=== PATIENT | female | born 1935 | race Caucasian/White ===

== ENCOUNTER 2016-11-27 06:01 | Day surgery (SDC) | payer BC ==
--- NOTE | ~2016-11-27 | EGD ---
EGD REPORT [facility] [address] [place] [address] NAME: RANJAN COLEMAN : 37 STATUS : REG [facility] [place] PAT#: [id number] AGE: 81 ADM/REG DATE : 11/27/16 MR#: [id number] REPORT SERV DATE: 11/27/16 DICTATED BY: MICH BIRMINGHAM DATE: 11/27/16 REPORT STATUS : Draft TRANSCRIBED BY: [employer] DATE: 11/27/16 [facility] Center Patient Name: Ranjan Coleman Date of : 1935 Attending MD: MICH BIRMINGHAM MD Procedure Date No Time: 11/27/2016 Procedure: Upper GI endoscopy Indications: Epigastric abdominal pain, Heartburn, Suspected esophageal reflux, Unexplained chest pain Referring MD: MELISSA MCFARLANE MD Medicines: as per anesthesia Complications: No immediate complications. Procedure: Pre-Anesthesia Assessment: - ASA Grade Assessment: III - A patient with severe systemic disease. After obtaining informed consent, the endoscope was passed under direct vision. Throughout the procedure, the patient's blood pressure, pulse, and oxygen saturations were monitored continuously. The GIF [id number] was introduced through the mouth, and advanced to the third part of duodenum. The upper GI endoscopy was accomplished without difficulty. The patient tolerated the procedure. Findings: The examined esophagus was normal. Localized mild inflammation characterized by erythema was found in the gastric antrum. Biopsies were taken with a cold forceps for histology. The cardia and gastric fundus were normal on retroflexion. The examined duodenum was normal. Impression: - Normal esophagus. - Gastritis. Biopsied. - Normal examined duodenum. Recommendation: - Await pathology results. - Follow an antireflux regimen. - Continue present medications. Procedure Code(s): --- Professional --- 86652, Esophagogastroduodenoscopy, flexible, transoral; with biopsy, single or multiple Diagnosis Code(s): --- Professional --- K29.70, Gastritis, unspecified, without bleeding EGD REPORT [place] [address] [address] NAME: RANJAN COLEMAN : 37 STATUS : REG [facility]#: [id number] AGE: 81 ADM/REG DATE : 11/27/16 MR#: [id number] REPORT SERV DATE: 11/27/16 DICTATED BY: MICH BIRMINGHAM. DATE: 11/27/16 REPORT STATUS : Draft TRANSCRIBED BY: [employer] DATE: 11/27/16 R10.13, Epigastric pain R12, Heartburn R07.9, Chest pain, unspecified CPT copyright 2013 [employer]. All rights reserved. The codes documented in this report are preliminary and upon career information specialist review may be revised to meet current compliance requirements. MICH BIRMINGHAM MD 11/27/2016 7:54 AM This report has been signed electronically. Number of Addenda: 0 Note Initiated On: 11/27/2016 7:37 AM Scope Withdrawal Time 0 hours 0 minutes [address] [place] [address] [place] [address]
[~2016-11-27 06:01] MED LIST: ACET500CAP PO; ASAB PO; ATV.5 PO; CARASPUDL PO; COREG3 PO; FISH-EPA1000 MG PO; GLUCCHONDR PO; MULTIPLE VIT PO; RESTASIS OPH; SYSTANE ULTR OP; TUMSROLL PO; VITC500 PO; VIVELLE-DOT0.0375 MG TOP; ZADITOR EYE DROPS OP; [UNRECOGNIZED DRUG - OTHER] PO
== END 2016-11-27 23:59 | disposition home health service (06) ==
LOC: DMU 06:01
PROVIDERS: Internal Medicine Gastroenterology
PROC: 0DB68ZX Excision of Stomach, Via Natural or Artificial Opening Endoscopic, Diagnostic (ICD-10-PCS; principal; 2016-11-27 07:00)
DX: R10.13 Epigastric pain (principal); J44.9 Chronic obstructive pulmonary disease, unspecified; I10 Essential (primary) hypertension; Z86.73 Personal history of transient ischemic attack (TIA), and cerebral infarction without residual deficits; Z88.2 Allergy status to sulfonamides; Z88.8 Allergy status to other drugs, medicaments and biological substances; Z87.891 Personal history of nicotine dependence; G43.909 Migraine, unspecified, not intractable, without status migrainosus; M19.90 Unspecified osteoarthritis, unspecified site; F41.9 Anxiety disorder, unspecified; Z90.49 Acquired absence of other specified parts of digestive tract; K21.9 Gastro-esophageal reflux disease without esophagitis; Z90.710 Acquired absence of both cervix and uterus
CPT/HCPCS: 88305